=== PATIENT | male | born 1950 | race Caucasian/White ===

== ENCOUNTER 2024-02-02 19:33 | Inpatient (IN) | payer MEDICARE, OTHER, SELFPAY ==
[2024-02-02 14:21] VITALS: BP 95/78
[2024-02-02] MEDS: NSS 1000 IV ×2 (15:27→20:46)
[2024-02-02 15:30] VITALS: BP 108/71
[2024-02-02 15:45] LABS: % Basophils 0.3 % (0-2); % Immature Granulocytes 0.3 % (0-0.5); % Lymphocytes 1.4 % (20.5-51.1); Absolute Lymphocytes 0.2 10^3/uL (1.2-3.4); Absolute Monocytes 0.4 10^3/uL (0.1-0.6); Absolute Neutrophils 12.9 10^3/uL (1.4-6.5); Hematocrit 42.8 % (39.0-52.0); Mean Corpuscular Hgb 30.1 pg (27.0-31.0); Mean Corpuscular Volume 85.8 fL (80.0-94.0); Mean Platelet Volume 9.3 fL (7.4-10.4); Nucleated Red Blood Cells % 0 % (-); Platelet Count 149 10^3/uL (130-400); Red Blood Cell Count 4.99 10^6/uL (4.70-6.10); Red Cell Dist. Width 13.6 % (11.5-14.5); White Blood Cell Count 13.6 10^3/uL (4.8-10.8)
[2024-02-02 15:53] LABS: Lactic Acid 1.2 mmol/L (0.7-2.0)
[2024-02-02 15:57] LABS: ALT (SGPT) 16 U/L (0-50); AST (SGOT) 20 U/L (17-59); Albumin 4.2 g/dl (3.5-5.0); Alkaline Phosphatase 56 U/L (38-126); Blood Urea Nitrogen 33 mg/dl (9-20); Calcium 9.4 mg/dl (8.4-10.2); Carbon Dioxide 20 mmol/L (22-30); Chloride 101 mmol/L (98-107); Glucose 102 mg/dl (70-99); Potassium 3.6 mmol/L (3.5-5.1); Sodium 130 mmol/L (135-145); Total Bilirubin 1.9 mg/dl (0.2-1.3); Total Protein 6.9 g/dl (6.3-8.2); eGFR 33.03
--- NOTE | 2024-02-02 16:18 | ED.GENMED ---
History of Present Illness
<Kassi Roblero GAS STATION ATTENDANT - Last Filed: 02/02/24 22:53>
General
Chief Complaint: Flank Pain
Source: patient and spouse
Exam Limitations: none
Time Seen by Provider: 02/02/24 14:35
Nursing documentation reviewed up to this point in time: agreed with
Travel History
Have you had any contact with someone who has COVID-19?: No
Do you have any symptoms of coronavirus? Fever > 100 degrees, chills, cough, shortness of breath, sore throat, loss of taste or smell, muscle aches, or headache?: No
History of Present Illness
History of Present Illness:
73-year-old male with fever, was nauseous with dry heaves yesterday but none today, he states 4 days ago after running heavy equipment with lots of bumping around he had right flank pain but that has resolved. 2 days ago he had dysuria he drank a
lot of water and that has resolved. He has been very fatigued the past couple of days and today at home his temperature was 101.1. He had absolutely no flank or abdominal pain but because of his significant history of kidney stones and the fact
that he only has 1 functioning kidney he is very anxious and afraid that maybe he passed a stone and did not feel the pain, he may have a kidney infection and he is insistent upon getting 'KUB' to be sure there is no kidney stones there.
Hx of non functioning left kidney and 30-35% function of right kidney. He is followed by urology nephrology at [facility] for multitudes of kidney stones both sides, lithotripsy, multiple stents.
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
Review of Systems
<Kassi Roblero GAS STATION ATTENDANT - Last Filed: 02/02/24 22:53>
Review of Systems
Allergies reviewed?: Yes
All Other Systems: ROS reviewed and negative except as documented in HPI and ROS
Constitutional: Reports fever and fatigue
EENT: Denies sore throat
Respiratory: Denies trouble breathing
Cardiac: Denies chest pain
ABD/GI: Denies abdominal pain, nausea, vomiting or diarrhea
: Denies dysuria, frequency, flank pain, difficulty voiding or urgency
Musculoskeletal: Reports no symptoms
Skin: Reports no symptoms
Neurological: Denies dizzy, headache, weakness or numbness
Phy Exam
<Kassi Roblero, GAS STATION ATTENDANT - Last Filed: 02/02/24 22:53>
Physical Exam
Physical Exam:
GENERAL: No acute distress. A&Ox3.
CONSTITUTIONAL: Temperature 101.5 p.o. for this examiner
EYES: Clear, conjunctivae normal
Neck: Supple
ENMT: moist mucus membranes, Pharynx nl
RESPIRATORY: Regular respirations, nonlabored, lungs clear.
CARDIOVASCULAR: Regular rate and rhythm, no murmurs, no rubs.
GI: Soft, nontender, normal BS
MUSCULOSKELETAL: Moves with ease. Well perfused. No edema
SKIN: Warm, dry, pink
PSYCH: Normal mood and affect. Well kept, interactive and appropriate
NEUROLOGIC: Awake, alert and oriented. No focal neurological deficits
Course
<Kassi Robleor, GAS STATION ATTENDANT - Last Filed: 02/02/24 22:53>
Orders/Labs/Results
Orders:
Orders
02/02/24 14:55
IV Insert/Care/Rem.- Treatment PRN
02/02/24 14:56
0.9% Sodium Chloride 1000 ml [Nss] 1,000 ml IV BOLUS
02/02/24 Dinner
Regular
At Your Request: Limited Participation
02/02/24 15:07
CR Abdomen - 1 View Urgent
Comment:
Reason For Exam: pt reqest, check for kidney, ureter, bladder stone
02/02/24 15:30
Complete Blood Count/With Diff Urgent
Comprehensive Metabolic Panel Urgent
Lactic Acid Q4H
Comment: CANCEL 2nd LACTIC ACID IF 1st LACTIC ACID IS LESS THAN 2
Blood Culture Q30M
YAZMIN Source: Blood/Venous
Specimen Description:
02/02/24 15:59
Blood Culture Q30M
YAZMIN Source: Blood/Venous
Specimen Description:
02/02/24 16:38
Urinalysis Reflex To Culture Urgent
Date Specimen was Collected: 02/02/24
Time Specimen was Collected: 16:33
Urine Microscopic Reflex Cult Urgent
Urine Culture Urgent
YAZMIN Source: U
Specimen Description:
Date Specimen was Collected: 02/02/24
Time Specimen was Collected: 16:33
02/02/24 17:08
Acetaminophen [Tylenol] 1,000 mg PO NOW STA
02/02/24 17:12
CT Abd/pel Without Iv Or Oral Urgent
Comment:
Reason For Exam: KUB: poss ileus, fever, UTI, elevated bili 1.7
02/02/24 17:22
CefTRIAXone [Rocephin] 1,000 mg IV NOW STA
02/02/24 17:45
EKG [Electrocardiogram (*1)] Urgent
Reason for Study: Palpitations
EKG- Treatment ONCE
02/02/24 19:25
Admit/Transfer Patient As Directed
Co-Sign Provider:
Level of Care: Inpatient admission
Assign to:: Medical/Surgical
Physician / Group: hospitalist
Diagnosis: pyelonephritis
Reason for Hospitalization: pyelonephritis, sepsis w/o sirs
Expected length of stay greater than two midnights?: Yes
ELOS- Estimated Length of Stay in days: 2
I certify the patient meets the requirements for IP care: Yes
Code Status As Directed
Resuscitation Status: Full Code
02/02/24 20:36
0.9% Sodium Chloride 1000 ml [Nss] 1,000 ml IV 75 mls/hr
Acetaminophen [Tylenol] 650 mg PO Q4HPRN PRN
Bisacodyl [Dulcolax] 10 mg RECTAL [id number] PRN
Docusate W/Senna [Senokot-S] 1 tablet PO BIDPRN PRN
HYDROmorphone [Dilaudid] 0.5 mg IV Q4HPRN PRN
Ondansetron Injectable [Zofran] 4 mg IV Q6HPRN PRN
Polyethylene Glycol Powder [Miralax] 17 grams PO DAILYPRN PRN
02/02/24 20:36
Activity As Directed
Activity Level: With Assistance
Vital Signs As Directed
Frequency: Per unit guidelines
DX Deep Vein Thrombosis Video Routine
02/02/24 22:00
Latanoprost [Xalatan Ophthalmic Solution] See Dose Instructions BOTH EYES HS
02/03/24 00:00
Heparin 5,000 units SC Q8
02/03/24 06:00
Basic Metabolic Panel IN AM
Complete Blood Count/No Diff IN AM
02/03/24 08:00
Cyanocobalamin [Vitamin B-12] 1,000 mcg PO DAILY
Hydrochlorothiazide [Oretic] 12.5 mg PO DAILY
Lisinopril [Zestril] 5 mg PO DAILY
Multivitamin [Theragran] 1 tablet PO DAILY
02/03/24 18:00
CefTRIAXone [Rocephin] 1,000 mg IV Q24H
Abnormal Lab Results
02/02/24 02/02/24
15:30 16:38
WBC 13.6 H 10^3/uL
(4.8-10.8)
Absolute Neuts (auto) 12.9 H 10^3/uL
(1.4-6.5)
Absolute Lymphs (auto) 0.2 L 10^3/uL
(1.2-3.4)
Neutrophils % 95.0 H %
(42.2-75.2)
Lymphocytes % 1.4 L %
(20.5-51.1)
Sodium 130 L mmol/L
(135-145)
Carbon Dioxide 20 L mmol/L
(22-30)
BUN 33 H mg/dl
(9-20)
Creatinine 2.1 H mg/dL
(0.7-1.3)
Glucose 102 H mg/dl
(70-99)
Total Bilirubin 1.9 H mg/dl
(0.2-1.3)
Ur Occult Blood Reflex 1+ A
(Negative)
Leukocyte Esterase Rfl 2+ A
(Negative)
Urine WBC (Reflex) 26-30 A /HPF
(0-5)
Urine Bacteria (Reflex) Few A
(Negative)
Urine Albumin (Reflex) 1+ A
(Neg - Trace)
02/02/24 15:30
02/02/24 15:30
Vital Signs
Initial and Last Documented VS:
Initial Vital Signs
Temp Pulse Resp BP Pulse Ox
100.0 F 72 16 95/78 97
02/02/24 14:21 02/02/24 14:21 02/02/24 14:21 02/02/24 14:21 02/02/24 14:21
Last Documented Vital Signs
Temp Pulse Resp BP Pulse Ox
99.1 F 86 20 98/56 96
02/02/24 20:39 02/02/24 20:39 02/02/24 20:39 02/02/24 20:39 02/02/24 20:39
<George Maxwell MD - Last Filed: 02/02/24 18:16>
Orders/Labs/Results
Orders:
Orders
02/02/24 14:55
IV Insert/Care/Rem.- Treatment PRN
02/02/24 14:56
0.9% Sodium Chloride 1000 ml [Nss] 1,000 ml IV BOLUS
02/02/24 Dinner
Regular
At Your Request: Limited Participation
02/02/24 15:07
CR Abdomen - 1 View Urgent
Comment:
Reason For Exam: pt reqest, check for kidney, ureter, bladder stone
02/02/24 15:30
Complete Blood Count/With Diff Urgent
Comprehensive Metabolic Panel Urgent
Lactic Acid Q4H
Comment: CANCEL 2nd LACTIC ACID IF 1st LACTIC ACID IS LESS THAN 2
Blood Culture Q30M
YAZMIN Source: Blood/Venous
Specimen Description:
02/02/24 15:59
Blood Culture Q30M
YAZMIN Source: Blood/Venous
Specimen Description:
02/02/24 16:38
Urinalysis Reflex To Culture Urgent
Date Specimen was Collected: 02/02/24
Time Specimen was Collected: 16:33
Urine Microscopic Reflex Cult Urgent
Urine Culture Urgent
YAZMIN Source: U
Specimen Description:
Date Specimen was Collected: 02/02/24
Time Specimen was Collected: 16:33
02/02/24 17:08
Acetaminophen [Tylenol] 1,000 mg PO NOW STA
02/02/24 17:12
CT Abd/pel Without Iv Or Oral Urgent
Comment:
Reason For Exam: KUB: poss ileus, fever, UTI, elevated bili 1.7
02/02/24 17:22
CefTRIAXone [Rocephin] 1,000 mg IV NOW STA
02/02/24 17:45
EKG [Electrocardiogram (*1)] Urgent
Reason for Study: Palpitations
EKG- Treatment ONCE
02/02/24 19:25
Admit/Transfer Patient As Directed
Co-Sign Provider:
Level of Care: Inpatient admission
Assign to:: Medical/Surgical
Physician / Group: hospitalist
Diagnosis: pyelonephritis
Reason for Hospitalization: pyelonephritis, sepsis w/o sirs
Expected length of stay greater than two midnights?: Yes
ELOS- Estimated Length of Stay in days: 2
I certify the patient meets the requirements for IP care: Yes
Code Status As Directed
Resuscitation Status: Full Code
02/02/24 20:36
0.9% Sodium Chloride 1000 ml [Nss] 1,000 ml IV 75 mls/hr
Acetaminophen [Tylenol] 650 mg PO Q4HPRN PRN
Bisacodyl [Dulcolax] 10 mg RECTAL [id number] PRN
Docusate W/Senna [Senokot-S] 1 tablet PO BIDPRN PRN
HYDROmorphone [Dilaudid] 0.5 mg IV Q4HPRN PRN
Ondansetron Injectable [Zofran] 4 mg IV Q6HPRN PRN
Polyethylene Glycol Powder [Miralax] 17 grams PO DAILYPRN PRN
02/02/24 20:36
Activity As Directed
Activity Level: With Assistance
Vital Signs As Directed
Frequency: Per unit guidelines
DX Deep Vein Thrombosis Video Routine
02/02/24 22:00
Latanoprost [Xalatan Ophthalmic Solution] See Dose Instructions BOTH EYES HS
02/03/24 00:00
Heparin 5,000 units SC Q8
02/03/24 06:00
Basic Metabolic Panel IN AM
Complete Blood Count/No Diff IN AM
02/03/24 08:00
Cyanocobalamin [Vitamin B-12] 1,000 mcg PO DAILY
Hydrochlorothiazide [Oretic] 12.5 mg PO DAILY
Lisinopril [Zestril] 5 mg PO DAILY
Multivitamin [Theragran] 1 tablet PO DAILY
02/03/24 18:00
CefTRIAXone [Rocephin] 1,000 mg IV Q24H
Abnormal Lab Results
02/02/24 02/02/24
15:30 16:38
WBC 13.6 H 10^3/uL
(4.8-10.8)
Absolute Neuts (auto) 12.9 H 10^3/uL
(1.4-6.5)
Absolute Lymphs (auto) 0.2 L 10^3/uL
(1.2-3.4)
Neutrophils % 95.0 H %
(42.2-75.2)
Lymphocytes % 1.4 L %
(20.5-51.1)
Sodium 130 L mmol/L
(135-145)
Carbon Dioxide 20 L mmol/L
(22-30)
BUN 33 H mg/dl
(9-20)
Creatinine 2.1 H mg/dL
(0.7-1.3)
Glucose 102 H mg/dl
(70-99)
Total Bilirubin 1.9 H mg/dl
(0.2-1.3)
Ur Occult Blood Reflex 1+ A
(Negative)
Leukocyte Esterase Rfl 2+ A
(Negative)
Urine WBC (Reflex) 26-30 A /HPF
(0-5)
Urine Bacteria (Reflex) Few A
(Negative)
Urine Albumin (Reflex) 1+ A
(Neg - Trace)
02/02/24 15:30
02/02/24 15:30
Vital Signs
Initial and Last Documented VS:
Initial Vital Signs
Temp Pulse Resp BP Pulse Ox
100.0 F 72 16 95/78 97
02/02/24 14:21 02/02/24 14:21 02/02/24 14:21 02/02/24 14:21 02/02/24 14:21
Last Documented Vital Signs
Temp Pulse Resp BP Pulse Ox
99.1 F 86 20 98/56 96
02/02/24 20:39 02/02/24 20:39 02/02/24 20:39 02/02/24 20:39 02/02/24 20:39
<Kassi NagelVinicius Roblero GAS STATION ATTENDANT - Last Filed: 02/02/24 22:53>
MDM/Problems Addressed
Differential Diagnosis Includes:
Dehydration, UTI, kidney stone
MDM/Problems Addressed:
73-year-old male with fever, was nauseous with dry heaves yesterday but none today, he states 4 days ago after running heavy equipment with lots of bumping around he had right flank pain but that has resolved. 2 days ago he had dysuria he drank a
lot of water and that has resolved. He has been very fatigued the past couple of days and today at home his temperature was 101.1. He had absolutely no flank or abdominal pain but because of his significant history of kidney stones and the fact
that he only has 1 functioning kidney he is very anxious and afraid that maybe he passed a stone and did not feel the pain, he may have a kidney infection and he is insistent upon getting 'KUB' to be sure there is no kidney stones there.
History of 'nonfunctional' left kidney and Right kidney with 30-35% funciton. . He is followed by urology nephrology at [facility] for multitudes of kidney stones both sides, lithotripsy, multiple stents.
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
Temperature was 101.5 p.o. for this examiner
4:00 PM
CBC: WBC 13.6 with elevated neutrophils
CMP: Mild hyponatremia with sodium of 130, BUN/creatinine 33/2.1. Patient states his creatinine typically runs around 1.8 but it has been slightly higher at times. IV fluids infusing
Lactate normal
Urinalysis pending
Single view abdominal film: Radiology report read: IMPRESSION:
1).There are 2 adjacent calculi in the left upper quadrant measuring 9 and 5 mm consistent with renal calculi
2). There is mildly dilated gas-filled small bowel measuring 3.7 cm and the left upper quadrant suggesting localized ileus
5:15 PM
U/A neg Nitrites +2 Leukocytes WBC 26-30 Concerned for UTI/Pyelonephritis, early sepsis with only one kidney that is partially functioning, antibiotics started
Pt informed of all results so far
Case discussed with Dr. Maxwell who will assume care from this point.
Abdominal CT pending
Blood and urine cultures pending
Chronic conditions affecting care: Kidney disease
<Kassi Roblero NP - Last Filed: 02/02/24 22:53>
*Critical Care Note
Total Time (30-74mins, 75-104mins- exclusive of procedures): Not Applicable
ED Attending Note
<Kassi Roblero NP - Last Filed: 02/02/24 22:53>
-
Portions of this chart may have been created with voice recognition software.� Occasional wrong word or��sound alike� substitutions may have occurred due to the inherent limitations of voice recognition software.
<George Maxwell MD - Last Filed: 02/02/24 18:16>
ED Attending Note
Patient seen and examined by attending physician: Yes
ED Attending Note:
I have seen and evaluated the patient with a kozf-yf-hepc encounter. I have spoken to the advance practicer provider and involved in the medical history, the physical exam, medical decision making.
Evaluation and management service: agree unless noted differently below.
Results interpretation: agree unless noted differently below.
Focused HPI: 73-year-old male with a past medical history of prior trauma requiring multiple abdominal surgeries including bowel resection and mesenteric artery repair, chronic kidney disease with only one functioning kidney, atrial fibrillation who
presents to the emergency room for evaluation of flank pain and urinary symptoms, fever. Patient reports that he had some flank pain 4 days ago which seems to have improved somewhat. He notes that over the past day or 2 he has noticed
foul-smelling dark cloudy urine. He says he started to develop fevers and chills. Came to the emergency room for assessment. No nausea or vomiting. No other symptoms noted.
Physical exam: Awake alert not in distress. Vital signs notable for tachycardia and fever. His abdomen is soft, nondistended, nontender to deep palpation. Mild right CVA tenderness.
Medical Decision Makin-year-old male presents for evaluation of flank pain and urinary issues, fevers over the past few days. Vitals significant for fever and tachycardia, physical exam as above. Recent labs include a CBC which showed a
leukocytosis to 13.6. CMP shows creatinine of 2.1�no priors available here for comparison the patient says his baseline is about 1.8 and so he has a mild DEANN with only 1 functioning kidney. His lactate is less than 2. Urinalysis is positive for
infection with bacteria and pyuria. Sent for CT abdomen pelvis which showed no obstructive nephrolithiasis. Blood culture sent off. Will cover with antibiotics for UTI/pyelonephritis and with multiple SIRS criteria concern potentially for sepsis,
will admit for continued management. Case discussed with hospitalist for admission.
Nurse alerted me that patient had a brief run of atrial fibrillation which was caught on EKG�appears to be in A-fib with RVR but converted on his own after short period of time. Patient is aware of the diagnosis says that he was seen by
silo tender in the past for it.
Discharge Plan
Departure
Patient Disposition: Admit
Date of Disposition: 02/02/24
Time of Disposition: 18:10
Admit to doctor: Prem
Presentation/result/management discussed w/ accepting MD/DO: Hospitalist
Discharge Problem:
Acute UTI, Sepsis
Interventions
Interventions:
*Risk Screen - Suicide Last Done: 02/02/24 20:57
*General Assessment Last Done: 02/02/24 14:21
*Neglect/Abuse Screening Last Done: 02/02/24 21:10
ED- Fall Risk Assessment Last Done: 02/02/24 16:57
*ED COVID-19 Vaccine History Last Done: 02/02/24 14:21
*Nursing Disposition Last Done: 02/02/24 21:10
JG-Gdphls-Jdptstregt Assessment Last Done: 02/02/24 15:08
ED-Male Genitourinary Assessment Last Done: 02/02/24 15:08
Discharge Date and Time
Discharge Date/Time: 02/02/24 21:11
[2024-02-02 16:30] VITALS: BP 114/75
[2024-02-02 16:46] LABS: Urine Albumin 1+ (Neg - Trace); Urine Bilirubin Negative (Negative); Urine Character Clear (Clear); Urine Color Yellow; Urine Glucose Negative (Negative); Urine Ketone Negative (Negative); Urine Leukocyte 2+ (Negative); Urine Nitrite Negative (Negative); Urine Occult Blood 1+ (Negative); Urine Urobilinogen Negative (Neg - 1+)
[2024-02-02 16:53] LABS: Urine Bacteria Few (Negative); Urine Squamous Cell 0-2 /LPF (Few)
[2024-02-02 16:54] LABS: Urine Red Blood Cell 0-2 /HPF (0-2); Urine White Cell 26-30 /HPF (0-5)
[2024-02-02] MEDS: ROCEPHIN 1000 MG IV (17:43)
[2024-02-02] MEDS: TYLENOL 1000 MG PO (17:43)
--- NOTE | 2024-02-02 19:16 | HPS.HSE ---
Family Physician
-
Family Physician: Jayde Westbrook
Chief Complaint
-
Weakness, flank pain and dysuria
History of Present Illness
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 Found
to have low-grade fevers in the ED.
Patient reported that symptoms began about 3 to 4 days ago. While experiencing some bumps at walking started noticing left-sided flank pain. He felt weak and tired. He then developed episode of dysuria. Dysuria lasted until about 24 hours ago.
He states that has cleared now. He denies seeing any hematuria. I did measure a temperature of 101 �F at home. He reports dry heaves but no vomiting. He denies any incontinence. He denies frequency, urgency. He reported urine was
foul-smelling. Patient denies any recent instrumentation. He denies history of urinary tract infections.
In the ED the patient had a temp of 100 �F, blood pressure was 114/75, pulse rate of 83 and normal oxygen saturation on room air. CT of the abdomen pelvis shows a nonobstructing stone without hydronephrosis. There is right-sided renal cysts.
White count of 13.6 with a normal hemoglobin and platelet count. Chemistry shows a creatinine of 2.1 (baseline is around 1.8). UA notable for 1+ blood, 2+ leukocyte esterase, many WBCs, few bacteria.
Medical History
Past Medical History
Past Medical History: Reports HTN
Additional Past Medical History:
CKD III
Single functional kidney
Nephrolithiasis
Past Surgical History: Reports Bowel Resection
Social History
Tobacco: Non-smoker
Alcohol: None
Drug: None
Personal:
Living: With Family
Employment: Employed
Family History
Family History: Not pertinent
Allergies / Home Medications
Allergies reflects when Allergies were last updated in [facility].
Home Medications with original date entered in [facility]
Allergy/Medication List:
Allergies
Allergy/AdvReac Type Severity Reaction Status Date / Time
fentanyl Allergy Unknown Verified 02/02/24 14:30
lorazepam [From Ativan] Allergy Unknown Verified 02/02/24 14:30
Home Medications
cholecalciferol (vitamin D3) 25 mcg (1,000 unit) tablet (Vitamin D3) 25 mcg PO DAILY 02/02/24
cyanocobalamin (vitamin B-12) 1,000 mcg tablet 1,000 mcg PO DAILY 02/02/24
hydrochlorothiazide 12.5 mg tablet 12.5 mg PO DAILY 02/02/24
latanoprost 0.005 % eye drops 1 drp BOTH EYES HS 02/02/24
lisinopril 5 mg tablet 5 mg PO DAILY 02/02/24
therapeutic multivitamin 1 tab PO DAILY 02/02/24
Review of Systems
-
History Source: Patient
Constitutional: Reports Fever
EENT: Reports No Symptoms
Respiratory: Reports No Symptoms
Cardiac: Reports No Symptoms
Abdomen/GI: Reports Nausea
: Reports Dysuria and Flank Pain
Musculoskeletal: Reports No Symptoms
Skin: Reports No Symptoms
Neurological: Reports No Symptoms
Endocrine: Reports No Symptoms
Hematologic/Lymphatic: Reports No Symptoms
Psych: Reports No Symptoms
Physical Exam
Vital Signs
Vital Signs
Temp Pulse Resp BP Pulse Ox
100.0 F 85 18 114/75 98
02/02/24 14:21 02/02/24 16:30 02/02/24 16:30 02/02/24 16:30 02/02/24 16:30
Physical Exam
General: Well Developed, Well Nourished and Comfortable
HEENT: NormoCephalic, Anicteric, Moist mucous membranes and Atraumatic
Respiratory: Clear
Cardiac: S1/S2 and Regular Rhythm
Breast: Deferred by me
GI: Soft, Non Tender, Non Distended and Normal Bowel Sounds
Rectal: Deferred by Provider
Genito-urinary: Costovertebral angle tend
Musculoskeletal: No Clubbing, No Cyanosis and No Edema
Skin: Warm
Neuro: AO x 3
Hematologic/Lymphatic: No Lymphadenopathy
Psych: Calm
Laboratory Results
-
02/02/24 15:30
02/02/24 15:30
Laboratory Results
Lactic Acid Cancelled 02/02/24 19:00
Total Bilirubin 1.9 mg/dl (0.2-1.3) H 02/02/24 15:30
AST 20 U/L (17-59) 02/02/24 15:30
ALT 16 U/L (0-50) 02/02/24 15:30
Alkaline Phosphatase 56 U/L (38-126) 02/02/24 15:30
Data Reviewed
-
Diagnostic Radiology: Image Personally Visualized and interpreted
CT Scan: Report Reviewed by me
Lab Data: Labs Reviewed by me
Old Records: Reviewed
Impression/Plan
-
IMPRESSION:
PLAN:
1. Pyelonephritis - Patient with h/o nephrolithiais who possibly passed a stone now coming in with UTI/pyelo (fever, leukocytosis, + u/a). Kidney stone w/o obstruction. Cr slightly increased from baseline. Denies recent abx, hospitalizations or
sick contacts.
- admit to med/surg
- blood and urine cultures sent
- continue ceftriaxone q 24, if afebrile can transition to oral after 24 hours
- pain control and antimetics
- iv fluids overnight
2. HTN - stable
- mild deann, will continue lisinopril and hctz for now
- iv fluids as above
3. Mild DEANN
- IV fluids, treat infection. No obstruction
DVT PPX - lovenox sq
Full Code
[2024-02-02 19:53] VITALS: BMI 20.9
[2024-02-02 20:39] VITALS: BP 98/56; BMI 20.9
--- NOTE | 2024-02-02 21:00 | PTCARENOTE ---
pt is aaox3, no c/o pain. pt oriented to room w/ call garcia in reach.
[2024-02-02] MEDS: XALATAN OPHTHALMIC SOLUTION 1 DROP BOTH EYES (22:26)
[2024-02-02] MEDS: TYLENOL 650 MG PO (22:27)
[2024-02-02 22:48] VITALS: BP 118/65
--- NOTE | 2024-02-02 23:00 | PTCARENOTE ---
pt c/o chills, tremulous in bed. oral rjun=868.4; administered Tylenol w/+eff. see mar
[2024-02-02] MEDS: HEPARIN 5000 UNITS SC (23:21)
[2024-02-03 06:38] LABS: Hematocrit 39.9 % (39.0-52.0); Hemoglobin 13.2 g/dL (13.0-18.0); Mean Corp Hgb Conc. 33.1 g/dL (33.0-37.0); Mean Corpuscular Hgb 29.5 pg (27.0-31.0); Mean Corpuscular Volume 89.3 fL (80.0-94.0); Mean Platelet Volume 9.8 fL (7.4-10.4); Platelet Count 126 10^3/uL (130-400); Red Blood Cell Count 4.47 10^6/uL (4.70-6.10); Red Cell Dist. Width 13.5 % (11.5-14.5); White Blood Cell Count 7.2 10^3/uL (4.8-10.8)
[2024-02-03 06:50] LABS: Blood Urea Nitrogen 32 mg/dl (9-20); Calcium 8.4 mg/dl (8.4-10.2); Carbon Dioxide 18 mmol/L (22-30); Chloride 104 mmol/L (98-107); Estimated Creatinine Clearance 29 ml/min; Glucose 108 mg/dl (70-99); Potassium 3.8 mmol/L (3.5-5.1); Sodium 134 mmol/L (135-145); eGFR 33.03
[2024-02-03 07:00] VITALS: BP 97/57
--- NOTE | 2024-02-03 09:37 | W.PN.HOSP.TC ---
Today's Communication/Plan
-
Continue antibiotics
IV fluid bolus
Await cultures
Stop lisinopril, HCTZ
Assessment / Plan
Assessment / Plan
Gen-AAOx3, NAD
HEENT-NC, AT, anicteric, clear oral mm
Neck-supple
CV-reg, no M, +S1/S2
Lungs-clear B/L
Abd-soft, NT, ND
Ext-no edema
Musculoskeletal-no cyanosis, clubbing
Skin-warm and dry
Neuro-grossly non-focal
Psych-calm, cooperative
Sepsis due to pyelonephritis -suspect due to underlying nephrolithiasis. Somewhat hypotensive this morning, hold antihypertensives. IV fluid bolus. Continue antibiotics. Await cultures.
White blood cell count now normal. Afebrile this morning.
Hyponatremia -permanently stop hydrochlorothiazide. Discussed with patient. He also drinks 150 ounces of water daily, works outside in the heat. Recommend mild fluid restriction.
DEANN on CKD 3B -baseline creatinine 1.8, currently 2.1. Possible etiology includes sepsis. Hold BELLA inhibitor. Labs in the morning.
Patient has a nonfunctioning left kidney.
Nephrolithiasis -no obstruction noted on CT. Follow-up with urology after discharge. CT shows nonobstructing left-sided renal calculi, largest measuring 13 mm.
Acute thrombocytopenia -unclear etiology. Monitor for now.
Full code
Anticipated Discharge: 24 - 48 hours
Subjective/Interval History
-
Date of Service: February 03, 2024
Patient seen and examined. No complaints.
Objective Data
-
Labs:
Laboratory Results
02/03/24
05:26
WBC 7.2
Hgb 13.2
Hct 39.9
Plt Count 126 L
Sodium 134 L
Potassium 3.8
Chloride 104
Carbon Dioxide 18 L
BUN 32 H
Creatinine 2.1 H
Glucose 108 H
Calcium 8.4
Vital Signs:
Vital Signs
Temp Pulse Resp BP Pulse Ox
99.2 F 72 14 97/57 99
02/03/24 07:00 02/03/24 07:00 02/03/24 07:00 02/03/24 07:00 02/03/24 07:00
I&O
02/02/24 02/03/24 02/04/24
06:59 06:59 06:59
Intake Total 1305 / 1305
Output Total 425 / 425
Balance 880 / 880
Review of Systems
-
History Source: Patient
All other systems: Reviewed and negative
[2024-02-03] MEDS: THERAGRAN 1 TABLET PO (09:38)
[2024-02-03] MEDS: VITAMIN B-12 1000 MCG PO (09:38)
[2024-02-03] MEDS: NSS 1000 IV ×2 (09:39→23:31)
[2024-02-03] MEDS: HEPARIN 5000 UNITS SC (09:39)
[2024-02-03] MEDS: NSS 500 IV (10:06)
[2024-02-03] MEDS: TYLENOL 650 MG PO ×2 (11:19→20:13)
[2024-02-03 11:25] VITALS: BP 103/64
[2024-02-03 15:01] VITALS: BP 111/67
--- NOTE | 2024-02-03 15:59 | CM ---
Alert awake oriented patient who lives with his Marylin who lives in a 2 story home with 2 step to enter and 13 steps to bed and bathroom. He is independent in all activities of daily living.No adaptive devices.
No VN hx /No SNF hx
Pharmacy [facility] Blayne Winters
PCP DR Westbrook
PLAN Home no anticipated needs
[2024-02-03] MEDS: STERILE WATER FOR INJECTION 10 ML IV (17:04)
[2024-02-03] MEDS: HEPARIN SC ×2 (17:05→23:06)
[2024-02-03] MEDS: ROCEPHIN 1000 MG IV (17:05)
[2024-02-03 20:11] VITALS: BP 127/73
[2024-02-03] MEDS: XALATAN OPHTHALMIC SOLUTION BOTH EYES (23:03)
[2024-02-03 23:07] VITALS: BP 100/50
[2024-02-04 04:02] VITALS: BP 134/80
[2024-02-04 05:38] LABS: % Basophils 0.6 % (0-2); % Eosinophils 0.9 % (0-6); % Immature Granulocytes 0.2 % (0-0.5); % Lymphocytes 10.1 % (20.5-51.1); % Monocytes 11.2 % (1.7-9.3); Absolute Lymphocytes 0.5 10^3/uL (1.2-3.4); Absolute Monocytes 0.5 10^3/uL (0.1-0.6); Absolute Neutrophils 3.6 10^3/uL (1.4-6.5); Hematocrit 36.7 % (39.0-52.0); Hemoglobin 12.8 g/dL (13.0-18.0); Mean Corp Hgb Conc. 34.9 g/dL (33.0-37.0); Mean Corpuscular Hgb 29.8 pg (27.0-31.0); Mean Corpuscular Volume 85.5 fL (80.0-94.0); Mean Platelet Volume 10.2 fL (7.4-10.4); Nucleated Red Blood Cells % 0 % (-); Platelet Count 118 10^3/uL (130-400); Red Blood Cell Count 4.29 10^6/uL (4.70-6.10); Red Cell Dist. Width 13.4 % (11.5-14.5); White Blood Cell Count 4.7 10^3/uL (4.8-10.8)
[2024-02-04 06:04] LABS: Blood Urea Nitrogen 26 mg/dl (9-20); Calcium 8.5 mg/dl (8.4-10.2); Carbon Dioxide 17 mmol/L (22-30); Chloride 107 mmol/L (98-107); Estimated Creatinine Clearance 32 ml/min; Glucose 103 mg/dl (70-99); Potassium 3.5 mmol/L (3.5-5.1); Sodium 134 mmol/L (135-145); eGFR 37.25
[2024-02-04 07:25] VITALS: BP 92/63
[2024-02-04 08:24] VITALS: BP 133/73
[2024-02-04] MEDS: HEPARIN SC (08:30)
[2024-02-04] MEDS: THERAGRAN 1 TABLET PO (08:30)
[2024-02-04] MEDS: VITAMIN B-12 1000 MCG PO (08:31)
--- NOTE | 2024-02-04 10:05 | W.PN.HOSP.TC ---
Today's Communication/Plan
-
Discharge
Assessment / Plan
Assessment / Plan
Gen-AAOx3, NAD
HEENT-NC, AT, anicteric, clear oral mm
Neck-supple
CV-reg, no M, +S1/S2
Lungs-clear B/L
Abd-soft, NT, ND
Ext-no edema
Musculoskeletal-no cyanosis, clubbing
Skin-warm and dry
Neuro-grossly non-focal
Psych-calm, cooperative
Sepsis due to pyelonephritis -suspect due to underlying nephrolithiasis. Continue antibiotics. Blood and urine cultures negative so far.
White blood cell count now normal. Afebrile this morning. Can discharge home on empiric antibiotics, follow-up with PCP and urology.
Hyponatremia -permanently stop hydrochlorothiazide. Discussed with patient. He also drinks 150 ounces of water daily, works outside in the heat. Recommend mild fluid restriction. Sodium stable at 134.
DEANN on CKD 3B -baseline creatinine 1.8, currently 1.9. Possible etiology includes sepsis. Hold BELLA inhibitor. Labs in the morning.
Patient has a nonfunctioning left kidney.
Nephrolithiasis -no obstruction noted on CT. Follow-up with urology after discharge. CT shows nonobstructing left-sided renal calculi, largest measuring 13 mm.
Acute thrombocytopenia -unclear etiology. Monitor for now.
Full code
Dispo -stable for discharge today.
32 minutes spent in discharge process.
Anticipated Discharge: Today
Subjective/Interval History
-
Date of Service: February 04, 2024
Patient seen and examined. No complaints.
Objective Data
-
Labs:
Laboratory Results
02/04/24
04:41
WBC 4.7 L
Hgb 12.8 L
Hct 36.7 L
Plt Count 118 L
Sodium 134 L
Potassium 3.5
Chloride 107
Carbon Dioxide 17 L
BUN 26 H
Creatinine 1.9 H
Glucose 103 H
Calcium 8.5
Vital Signs:
Vital Signs
Temp Pulse Resp BP Pulse Ox
98.8 F 81 20 133/73 100
02/04/24 07:25 02/04/24 08:24 02/04/24 07:25 02/04/24 08:24 02/04/24 07:25
I&O
02/03/24 02/04/24 02/05/24
06:59 06:59 06:59
Intake Total 1305 / 1305 1170 / 1170
Output Total 425 / 425 650 / 650
Balance 880 / 880 520 / 520
Review of Systems
-
History Source: Patient
All other systems: Reviewed and negative
--- NOTE | 2024-02-04 10:17 | W.DS.TRANS ---
DC Summary - [employer]
-
Discharge Instructions:
Sleep Apnea Risk Intermediate
Discharge Diagnosis/Procedures Sepsis, pyelonephritis, hyponatremia,
nephrolithiasis
Diet Regular
Activity As tolerated
Driving Restrictions As prior to admission
Bathing Restrictions None
Instructions:
Stand-Alone Forms:
Changes to Home Medications: Yes
Discharge Medications:
DC Medications w/original date entered in [employer]
cholecalciferol (vitamin D3) 25 mcg (1,000 unit) tablet (Vitamin D3) 25 mcg PO DAILY Supplement 02/02/24
cyanocobalamin (vitamin B-12) 1,000 mcg tablet 1,000 mcg PO DAILY Supplement 02/02/24
latanoprost 0.005 % eye drops 1 drp BOTH EYES HS Eye Condition 02/02/24
lisinopril 5 mg tablet 5 mg PO DAILY Blood Pressure 02/02/24
therapeutic multivitamin 1 tab PO DAILY Supplement 02/02/24
levofloxacin 750 mg tablet 750 mg PO Q2D #3 tabs 02/04/24
polyethylene glycol 3350 17 gram oral powder packet (HealthyLax) 17 g PO DAILYPRN PRN constipation #0 ea 02/04/24
Home Medication Changes
Stop hydrochlorothiazide
Pending Results: No
--- NOTE | 2024-02-04 10:34 | CM ---
MD entered order for discharge.
Spoke with patient he said he was ready for discahrge.
Offered Vn he decline dneed,.
he said his Marylin will drive him hoime.
PLAN Home no needs
[2024-02-04 11:02] VITALS: BP 128/75
== END 2024-02-04 12:51 | disposition home or self-care (01) | DRG 872 ==
LOC: 4 EAST ACU 19:33
PROVIDERS: Registered Nurse; ADMITTING PHYSICIAN Internal Medicine; ATTENDING PHYSICIAN Hospitalist; EMERGENCY PHYSICIAN Emergency Medicine; FAMILY PHYSICIAN Family Medicine Geriatric Medicine
DX: A41.9 Sepsis, unspecified organism (principal); N12 Tubulo-interstitial nephritis, not specified as acute or chronic; E87.1 Hypo-osmolality and hyponatremia; N17.9 Acute kidney failure, unspecified; N18.32 Chronic kidney disease, stage 3b; N20.0 Calculus of kidney; D69.6 Thrombocytopenia, unspecified
CPT/HCPCS: 74018; 74176; 80048; 80053; 81003; 81015; 83605; 85025; 85027; 87040; 87086; 93005; 96361; 96374; 99285

== ENCOUNTER 2024-08-14 21:12 | Emergency (ER) | payer MEDICARE, OTHER, SELFPAY ==
[2024-08-14 21:15] VITALS: BP 144/83
[2024-08-14 22:12] LABS: % Basophils 0.5 % (0-2); % Eosinophils 2.4 % (0-6); % Immature Granulocytes 0.2 % (0-0.5); % Lymphocytes 13.4 % (20.5-51.1); % Monocytes 8.6 % (1.7-9.3); % Neutrophils 74.9 % (42.2-75.2); Absolute Eosinophils 0.2 10^3/uL (0-0.7); Absolute Lymphocytes 1.1 10^3/uL (1.2-3.4); Absolute Monocytes 0.7 10^3/uL (0.1-0.6); Absolute Neutrophils 6.3 10^3/uL (1.4-6.5); Hematocrit 40.8 % (39.0-52.0); Hemoglobin 13.6 g/dL (13.0-18.0); Mean Corp Hgb Conc. 33.3 g/dL (33.0-37.0); Mean Corpuscular Hgb 29.4 pg (27.0-31.0); Mean Corpuscular Volume 88.1 fL (80.0-94.0); Mean Platelet Volume 9.6 fL (7.4-10.4); Nucleated Red Blood Cells % 0 % (-); Platelet Count 166 10^3/uL (130-400); Red Blood Cell Count 4.63 10^6/uL (4.70-6.10); Red Cell Dist. Width 13.7 % (11.5-14.5); White Blood Cell Count 8.4 10^3/uL (4.8-10.8)
[2024-08-14 22:20] VITALS: BP 119/76
[2024-08-14 22:28] LABS: ALT (SGPT) 17 U/L (0-50); AST (SGOT) 20 U/L (17-59); Albumin 4.4 g/dl (3.5-5.0); Alkaline Phosphatase 53 U/L (38-126); Blood Urea Nitrogen 35 mg/dl (9-20); Calcium 9.1 mg/dl (8.4-10.2); Carbon Dioxide 20 mmol/L (22-30); Chloride 105 mmol/L (98-107); Glucose 108 mg/dl (70-99); Sodium 136 mmol/L (135-145); Total Bilirubin 0.8 mg/dl (0.2-1.3); eGFR 35.02
--- NOTE | 2024-08-14 23:36 | ED.GENMED ---
History of Present Illness
General
Chief Complaint: DVT/Possible Blood Clot
Source: patient and spouse
Exam Limitations: none
Time Seen by Provider: 08/14/24 23:07
Nursing documentation reviewed up to this point in time: agreed with
History of Present Illness
History of Present Illness:
This is a 73-year-old gentleman who complains of 5-day history of left posterior calf pain. Initially noted mild pain left lateral posterior calf, has progressed to moderate pain globally to the posterior calf and now mildly to the left medial calf
along with mild global swelling of his left lower leg. He denies pain or swelling of his thigh. No cough no shortness of breath, no fever no chills, no chest pain, no palpitations. No history of similar episodes in the past.
He does admit to staying quite active on a daily basis and initially thought that he strained his calf muscle.
No history of similar episodes in the past.
Evaluated at [facility] yesterday had x-rays that were unremarkable. Ultrasound at [facility] today showed left lower extremity DVT of the mid to distal femoral vein, popliteal vein as well as peroneal and posterior tibial
veins. No thrombus within the common femoral nor common femoral/saphenous vein junction.
Patient has no prior history of DVT but he does have history of major trauma 2003, severe crush injury requiring fasciotomy of left medial lower leg, small bowel resection, iliac artery repair. He does suffer with malabsorption syndrome and has
marked difficulty maintaining his weight. His weight generally runs around 135 pounds.
He also has history of chronic kidney disease status post multiple trauma with creatinine ranging 1.5-2.0.
No prior history of GI bleed nor bleeding disorders. No history of thrombosis.
Past History
Past History
ED Past Medical History: HTN, Renal failure (Chronic kidney disease creatinine runs 1.5-2.0), Other (Kidney stones, multiple trauma/crush injury 2003) and Other (Malabsorption syndrome status post partial small bowel resection related to crush
injury/trauma 2003)
ED Past Surgical History: Bowel resection (Small bowel resection status post trauma 2003), Cholecystectomy, Orthopedic (Left tibial fracture in the , left lower leg fasciotomy status post crush injury 2003), Urological (Ureteral stent for
kidney stone) and Other (Iliac artery repair status post trauma 2003)
Social History
Tobacco: Non-smoker
Alcohol: None
Drug: None
Personal:
Living: with family
Employment: Retired
Family History
Family History: Other (Noncontributory)
Phy Exam
Physical Exam
Physical Exam:
GENERAL: 73-year-old gentleman appears younger than stated age, bright and alert, pleasant, easily communicative and appears in no acute distress. is accompanying.
EYE: anicteric
NECK: Supple, nontender, no meningismus, no significant adenopathy.
ENT: oral mucosa is moist. No rhinorrhea.
CARDIAC: Regular rate and rhythm. no murmur.
LUNGS: Clear breath sounds bilaterally, no acute respiratory distress, no wheezes/rales/rhonchi
ABDOMEN: Soft, nondistended, without focal tenderness, no r/g, no cvat. normoactive BS.
NEUROLOGICAL: Alert and oriented x3, no focal neuro deficits. Gait is steady.
SKIN: Warm and dry, normal color, skin intact. No rash.
MUSCULOSKELETAL: There is mild global edema of left calf with mild tenderness to palpation left posterior to medial calf. No palpable cords, no erythema. Positive Homans' sign on left. peripheral pulses are full and equal b/l. There is no
tenderness nor soft tissue swelling of the thigh nor inguinal tenderness. No adenopathy. Full range of motion.
PSYCH: Normal and appropriate interaction.
Course
Orders/Labs/Results
Orders:
Orders
08/14/24 22:05
Complete Blood Count/With Diff Urgent
Comprehensive Metabolic Panel Urgent
Abnormal Lab Results
08/14/24
22:05
RBC 4.63 L 10^6/uL
(4.70-6.10)
Absolute Lymphs (auto) 1.1 L 10^3/uL
(1.2-3.4)
Absolute Monos (auto) 0.7 H 10^3/uL
(0.1-0.6)
Lymphocytes % 13.4 L %
(20.5-51.1)
Carbon Dioxide 20 L mmol/L
(22-30)
BUN 35 H mg/dl
(9-20)
Creatinine 2.0 H mg/dL
(0.7-1.3)
Glucose 108 H mg/dl
(70-99)
08/14/24 22:05
08/14/24 22:05
Vital Signs
Initial and Last Documented VS:
Initial Vital Signs
Temp Pulse Resp BP Pulse Ox
98.2 F 85 16 144/83 99
08/14/24 21:15 08/14/24 21:15 08/14/24 21:15 08/14/24 21:15 08/14/24 21:15
Last Documented Vital Signs
Temp Pulse Resp BP Pulse Ox
98.2 F 70 17 119/76 99
08/14/24 21:15 08/14/24 22:20 08/14/24 22:20 08/14/24 22:20 08/14/24 22:20
MDM/Problems Addressed
Differential Diagnosis Includes:
Patient presents with 5-day history of left calf pain.
Outpatient ultrasound shows DVT left lower leg.
Nothing in history nor exam to suggest PE.
No history of similar episodes in the past but he does have a history of prior crush injury to this left lower extremity requiring fasciotomy as well as remote history of left tibial fracture in the s.
Due to chronically altered anatomy he is certainly at increased risk for DVT of this leg.
Overall well in appearance.
Will start Eliquis.
Weight today 60.5 kg. CKD-creat 2.0. at his baseline.
will check with pharmacy re: need for dose adjustment.
will refer to [facility] for follow up.
Return precautions discussed
Chronic conditions affecting care: Kidney disease
*Radiology
Radiology exam reviewed: radiology read reviewed (OP US LLE report from [facility] reviewed. scanned into EHR)
*Pulse Oximetry
Patient hypoxic: no
*Critical Care Note
Total Time (30-74mins, 75-104mins- exclusive of procedures): Not Applicable
ED Attending Note
-
Portions of this chart may have been created with voice recognition software.� Occasional wrong word or��sound alike� substitutions may have occurred due to the inherent limitations of voice recognition software.
Discharge Plan
Departure
Patient Disposition: Home (Routine Discharge)
Date of Disposition: 08/15/24
Time of Disposition: 00:02
Patient with high blood pressure during this ER visit?: No
Condition: Good
Discharge Problem:
Acute deep vein thrombosis (DVT) of left lower extremity
Instructions: Deep Vein Thrombosis (Blood Clots in the Legs) (DC), Apixaban
Prescriptions:
No Action
latanoprost 0.005 % Drops
1 drp BOTH EYES HS
cyanocobalamin (vitamin B-12) 1,000 mcg Tablet
1,000 mcg PO DAILY
therapeutic multivitamin Tablet
1 tab PO DAILY
lisinopril 5 mg Tablet
5 mg PO DAILY
cholecalciferol (vitamin D3) [Vitamin D3] 25 mcg (1,000 unit) Tablet
25 mcg PO DAILY
polyethylene glycol 3350 [HealthyLax] 17 gram Powder In Packet
17 g PO DAILYPRN PRN (Reason: constipation) Qty: 0 0RF
levofloxacin 750 mg tablet
750 mg PO Q2D Qty: 3 0RF
Referrals:
Jayde Westbrook, [Family Provider] -
Interventions
Interventions:
*Risk Screen - Suicide Last Done: 08/14/24 21:15
*General Assessment Last Done: 08/14/24 21:15
*Neglect/Abuse Screening Last Done: 08/14/24 21:15
ED- Fall Risk Assessment Last Done: 08/14/24 22:20
*ED COVID-19 Vaccine History Last Done: 08/14/24 22:21
ED- Cardiac Assessment Last Done: 08/14/24 22:20
ED- Pulmonary Assessment Last Done: 08/14/24 22:20
ED-Peripheral Vascular Assessment Last Done: 08/14/24 22:20
ED-Skin Assessment Last Done: 08/14/24 22:20
Discharge Date and Time
Print Language: KAZAKH
--- NOTE | 2024-08-14 23:56 | EDRN ---
Verbal order given for RN to hold ordered eliquis at this time until vascular returns tiger text.
[2024-08-15] MEDS: ELIQUIS 10 MG PO (00:07)
== END 2024-08-15 00:31 | disposition home or self-care (01) ==
LOC: EMR 21:12
PROVIDERS: Emergency Medicine; EMERGENCY PHYSICIAN Emergency Medicine; FAMILY PHYSICIAN Family Medicine Geriatric Medicine
DX: I82.412 Acute embolism and thrombosis of left femoral vein (principal); M79.662 Pain in left lower leg; I12.9 Hypertensive chronic kidney disease with stage 1 through stage 4 chronic kidney disease, or unspecified chronic kidney disease; N18.9 Chronic kidney disease, unspecified; Z87.442 Personal history of urinary calculi; Z90.49 Acquired absence of other specified parts of digestive tract
CPT/HCPCS: 99283; 80053; 85025

== ENCOUNTER 2025-03-24 21:53 | Emergency (ER) | payer MEDICARE, OTHER, SELFPAY ==
[2025-03-24 21:56] VITALS: BP 127/79
[2025-03-24 23:58] VITALS: BP 132/81
--- NOTE | 2025-03-25 01:47 | ED.SKININJ ---
HPI-Injury
General
Chief Complaint: Bite
Source: patient
Exam Limitations: none
Time Seen by Provider: 03/25/25 01:27
Nursing documentation reviewed up to this point in time: agreed with
History of Present Illness-Injury
Initial Injury comments:
The patient is a 74-year-old male who presents after being stung by a bee left forehead tonight. He believes he was stung by a yellowjacket. Moderate swelling and mild redness left forehead but then he developed generalized hives and itching. No
difficulty swallowing nor throat pain, no nausea nor vomiting nor diarrhea, no chest nor abdominal pain, no coughing or shortness of breath. His gave him Benadryl 50 mg at approximately 9:30 PM. He took a shower to alleviate the itching
before presenting to the clinic. He reported a history of being allergic to certain insect bites in childhood, particularly yellow jackets, which caused local swelling. However, he has been stung multiple times by other insects without significant
reactions, except for one instance of chest swelling that occurred when he was 12 years old.
Upon examination, the patients hives appeared to be gradually resolving. He had experienced hives beginning from the forehead, progressing over the face, and descending towards the nose, with associated locally irritated areas. He described the
sensation as bothersome but did not report any respiratory difficulties or angioedema.
He has history of PAF as well as history of unprovoked DVT lower extremity. Chronically maintained on Eliquis.
No history of bleeding disorders.
He has a small basal cell right cheek with planned Mohs procedure next week, March 31.
Past History
Past History
ED Past Medical History: HTN, Renal failure (Chronic kidney disease creatinine runs 1.5-2.0), Other (Kidney stones, multiple trauma/crush injury 2003) and Other (Malabsorption syndrome status post partial small bowel resection related to crush
injury/trauma 2003)
ED Past Surgical History: Bowel resection (Small bowel resection status post trauma 2003), Cholecystectomy, Orthopedic (Left tibial fracture in the , left lower leg fasciotomy status post crush injury 2003), Urological (Ureteral stent for
kidney stone) and Other (Iliac artery repair status post trauma 2003)
Social History
Tobacco: Non-smoker
Alcohol: None
Drug: None
Personal:
Living: with family
Employment: Retired
Family History
Family History: Other (Noncontributory)
Phy Exam
Physical Exam
Physical Exam:
General: Alert, no acute distress. 74-year-old gentleman appears his stated age, bright and alert, pleasant, appears in no acute distress.
Skin: Warm, dry, presence of resolving urticaria left forehead, left supraorbital region.
Head: Normocephalic, atraumatic.
Neck: Supple, trachea midline.
Eyes, Ears, Nose, Mouth, and Throat: Oral mucosa moist.
Cardiovascular: Normal peripheral perfusion, No edema.
Respiratory: Respirations are non-labored.
Gastrointestinal: Abdomen nondistended
Back: Normal range of motion, Normal alignment.
Musculoskeletal: Normal ROM, normal strength.
Neurological: Alert and oriented to person, place, time, and situation, No focal neurological deficit observed.
Psychiatric: Cooperative, appropriate mood & affect.
Course
Orders/Labs/Results
Orders:
Orders
03/25/25 01:46
Prednisone [Deltasone] 50 mg PO NOW STA
Vital Signs
Initial and Last Documented VS:
Initial Vital Signs
Temp Pulse Resp BP Pulse Ox
98.5 F 63 18 127/79 98
03/24/25 21:56 03/24/25 21:56 03/24/25 21:56 03/24/25 21:56 03/24/25 21:56
Last Documented Vital Signs
Temp Pulse Resp BP Pulse Ox
98.5 F 73 18 132/81 97
03/24/25 21:56 03/24/25 23:58 03/25/25 00:04 03/24/25 23:58 03/24/25 23:58
MDM/Problems Addressed
Differential Diagnosis Includes:
The Differential Diagnosis includes, in no particular order and is not limited to:
1. Allergic reaction to insect sting
2. Urticaria due to insect venom hypersensitivity
3. Angioedema secondary to insect sting
4. Contact dermatitis
5. Erythema multiforme
6. Insect-bite induced anaphylaxis
7. Drug-induced urticaria
8. Idiopathic urticaria
9. Viral exanthema
10. Dermatographism
Chronic conditions affecting care: Arrhythmia and Kidney disease
*Pulse Oximetry
SaO2: 97
Oxygen Mode of Delivery: Room air
Patient hypoxic: no
*Critical Care Note
Total Time (30-74mins, 75-104mins- exclusive of procedures): Not Applicable
Update Note
Update Note:
PLAN:
1. Prescribe an epinephrine auto-injector (EpiPen) and advise keeping it on hand for future insect stings.
2. Start a short course of prednisone to manage ongoing rash and itching.
3. Continue using diphenhydramine as needed in conjunction with a daily antihistamine (either loratadine or cetirizine) to prevent recurrence of hives.
4. Educate the patient on signs of severe allergic reactions and the proper use of an EpiPen.
5. Recommend elevation of the head during sleep to help alleviate symptoms.
6. Advise against discontinuing any prescribed medications without consulting a physician.
ED Attending Note
-
Portions of this chart may have been created with voice recognition software.� Occasional wrong word or��sound alike� substitutions may have occurred due to the inherent limitations of voice recognition software.
Discharge Plan
Departure
Patient Disposition: Home (Routine Discharge)
Date of Disposition: 03/25/25
Time of Disposition: 01:51
Patient with high blood pressure during this ER visit?: No
Condition: Good
Discharge Problem:
Allergic reaction to bee sting
Instructions: Insect bites and stings, How to use an autoinjector
Prescriptions:
New
epinephrine [EpiPen 2-Medhat] 0.3 mg/0.3 mL auto-injector
0.3 mg IM Q5-15M PRN (Reason: allergic reaction) Qty: 2 0RF
prednisone 20 mg tablet
40 mg PO DAILY Qty: 6 0RF
No Action
latanoprost 0.005 % Drops
1 drp BOTH EYES HS
cyanocobalamin (vitamin B-12) 1,000 mcg Tablet
1,000 mcg PO DAILY
therapeutic multivitamin Tablet
1 tab PO DAILY
lisinopril 5 mg Tablet
5 mg PO DAILY
cholecalciferol (vitamin D3) [Vitamin D3] 25 mcg (1,000 unit) Tablet
25 mcg PO DAILY
polyethylene glycol 3350 [HealthyLax] 17 gram Powder In Packet
17 g PO DAILYPRN PRN (Reason: constipation) Qty: 0 0RF
levofloxacin 750 mg tablet
750 mg PO Q2D Qty: 3 0RF
Eliquis 5 mg tablet
5 mg PO BID Qty: 60 1RF
Referrals:
Jayde Westbrook DO [Family Provider, Family Practice] - As needed
Interventions
Interventions:
*Risk Screen - Suicide Last Done: 03/24/25 21:56
*General Assessment Last Done: 03/24/25 21:56
*Neglect/Abuse Screening Last Done: 03/24/25 21:56
*ED- Fall Risk Assessment Last Done: 03/24/25 21:56
*ED COVID-19 Vaccine History Last Done: 03/24/25 21:56
ED-Skin Assessment Last Done: 03/24/25 23:56
Discharge Date and Time
Print Language: GUATEMALAN
[2025-03-25] MEDS: DELTASONE 50 MG PO (01:54)
[2025-03-25 01:57] VITALS: BP 131/83
== END 2025-03-25 01:58 | disposition home or self-care (01) ==
LOC: EMR 21:53
PROVIDERS: EMERGENCY PHYSICIAN Emergency Medicine; FAMILY PHYSICIAN Family Medicine Geriatric Medicine
DX: T63.441A Toxic effect of venom of bees, accidental (unintentional), initial encounter (principal); I12.9 Hypertensive chronic kidney disease with stage 1 through stage 4 chronic kidney disease, or unspecified chronic kidney disease; N18.9 Chronic kidney disease, unspecified; I48.0 Paroxysmal atrial fibrillation; Z86.718 Personal history of other venous thrombosis and embolism; Z79.01 Long term (current) use of anticoagulants
CPT/HCPCS: 99283